=== PATIENT | female | born 1980 | race Native Hawaiian/Other Pacific Islander ===

== ENCOUNTER 2017-02-09 07:47 | Day surgery (SDC) | payer BC | END 2017-02-09 10:45 | disposition home or self-care (01) | LOC: OR 07:47 | PROC: 0DB68ZZ Excision of Stomach, Via Natural or Artificial Opening Endoscopic (ICD-10-PCS; principal; 2017-02-09) | DX: K29.50 Unspecified chronic gastritis without bleeding (principal); R10.13 Epigastric pain; Z86.19 Personal history of other infectious and parasitic diseases | CPT/HCPCS: 81025; J2001; J2704 ==

== ENCOUNTER 2017-05-12 13:43 | Emergency (ER) | payer BC ==
[~2017-05-12] VITALS: Ht 160 cm; Wt 99.8 kg
[2017-05-12 14:29] LABS: PLATELET COUNT 249 K/uL (152-353)
[2017-05-12 14:39] LABS: POTASSIUM 3.5 mmol/L (3.6-5.2); SODIUM 138 mmol/L (136-145)
[2017-05-12 15:15] VITALS: BP 118/74; TEMP 98.6
== END 2017-05-12 15:15 | disposition home or self-care (01) ==
LOC: ED 13:43
DX: N20.0 Calculus of kidney (principal); N20.1 Calculus of ureter; N23 Unspecified renal colic
CPT/HCPCS: 36415; 80053; 81000; 81025; 85027; 96374; 96375; 99284; J1885; J2405

== ENCOUNTER 2018-07-30 15:12 | Emergency (ER) | payer BC ==
[~2018-07-30] VITALS: Ht 162.6 cm; Wt 104.3 kg
[2018-07-30 15:17] VITALS: TEMP 98.1
[2018-07-30 15:59] LABS: PLATELET COUNT 279 K/uL (152-353)
[2018-07-30 16:45] LABS: POTASSIUM 3.7 mmol/L (3.6-5.2); SODIUM 141 mmol/L (136-145)
[2018-07-30 18:41] VITALS: BP 107/71
== END 2018-07-30 18:41 | disposition home or self-care (01) ==
LOC: ED 15:12
DX: R07.89 Other chest pain (principal)
CPT/HCPCS: 36415; 80053; 81000; 82150; 82550; 82553; 83690; 84484; 85027; 93005; 96374; 99284; J1885

== ENCOUNTER 2018-08-23 10:47 | Outpatient (CLI) | payer BC | END 2018-08-23 22:42 | disposition home or self-care (01) | LOC: NM 10:47 | DX: R10.11 Right upper quadrant pain (principal) | CPT/HCPCS: A9537 ==

== ENCOUNTER 2018-10-11 13:04 | Outpatient (CLI) | payer BC | END 2018-10-11 21:08 | disposition home or self-care (01) | LOC: MAMMO 13:04 | DX: N63.0 Unspecified lump in unspecified breast (principal) ==

== ENCOUNTER 2020-12-23 10:16 | Outpatient (CLI) | payer BC | END 2020-12-23 22:42 | disposition home or self-care (01) | LOC: RAD 10:16 | PROVIDERS: ATTEND Nurse Practitioner Family | DX: M54.2 Cervicalgia (principal) ==

== ENCOUNTER 2021-08-19 15:11 | Emergency (ER) | payer BC ==
[~2021-08-19] VITALS: Ht 162.6 cm; Wt 104.3 kg
[2021-08-19 15:13] VITALS: TEMP 99.6
[2021-08-19 15:57] LABS: PLATELET COUNT 236 K/uL (152-353)
[2021-08-19 16:15] LABS: SODIUM 137 mmol/L (136-145)
[2021-08-19 19:13] VITALS: BP 149/87
== END 2021-08-19 19:13 | disposition home or self-care (01) ==
LOC: ED 15:11
PROVIDERS: Emergency Medicine Emergency Medical Services
DX: R07.89 Other chest pain (principal)
CPT/HCPCS: 80053; 81025; 83735; 84484; 85027; 85610; 93005; 99284

== ENCOUNTER 2022-03-31 07:55 | Outpatient (CLI) | payer BC | END 2022-03-31 18:59 | disposition home or self-care (01) | LOC: NM 07:55 | PROVIDERS: ATTEND Internal Medicine Gastroenterology | DX: R11.0 Nausea (principal) | CPT/HCPCS: A9500 ==

== ENCOUNTER 2022-04-26 13:42 | Emergency (ER) | payer BC ==
[~2022-04-26] VITALS: Ht 162.6 cm; Wt 104.3 kg
[2022-04-26 13:48] VITALS: TEMP 98.3
[2022-04-26] MEDS ORDERED: CYCL10TA35 PO (15:32)
[2022-04-26 17:10] VITALS: BP 143/88
== END 2022-04-26 17:16 | disposition home or self-care (01) ==
LOC: ED 13:42
DX: M79.18 Myalgia, other site (principal)
CPT/HCPCS: 96372; 99283; J1885

== ENCOUNTER 2023-03-31 09:03 | Outpatient (CLI) | payer BC ==
[~2023-03-31 09:03] MED LIST: CYCL10TA35 PO
== END 2023-03-31 20:35 | disposition home or self-care (01) ==
LOC: MAMMO 09:03
PROVIDERS: ATTEND Nurse Practitioner Family
DX: Z12.31 Encounter for screening mammogram for malignant neoplasm of breast (principal)